=== PATIENT | female | born 1985 | race Caucasian/White ===

== ENCOUNTER 2017-03-04 11:20 | Emergency (ER) | payer OTHER ==
--- NOTE | 2017-03-04 12:13 | PD ---
HPI Chief Complaint Abdominal pain 2 days Date Seen: Mar 04, 2017 Time Seen: 12:05 Travel History International Travel<30 Days: No Contact w/Intl Traveler<30Days: No Known Affected Area: No History of Present Illness HPI This patient is 31-year-old white female A1 previous 1 at [address] Barker who presents complaining of lower abdominal pain for 2 days. She denies bleeding or rupture the membranes. Baby is active. Heart rate tracing is reactive and there are no contractions seen. Weeks Gestation: 30 Para: 1 : 3 Miscarriage: 1 History Obstetric History Obstetric History 1 at term 1 early loss Past Surgical History Narrative Surgical 1 Social History Alcohol Use: No Tobacco Use: No Substance Abuse: No Review of Systems General / Constitutional: No: Fever, Weight Gain, Chills, Other Eyes: No: Diploplia, Blurred Vision, Visual changes, Pain, Photophobia HENT: No: Headaches, Vertigo, Lightheadedness Cardiovascular: No: Irregular Rhythm, Chest Pain or Discomfort, Palpitations, Tachycardia, Syncope, Varicosities, Edema, Cyanosis Respiratory: No: Cough, Short of Breath, Other Gastrointestinal: Abdominal Pain, No: Nausea, Vomiting, Diarrhea Genitourinary: No: Decreased Urinary Output, Oliguria Musculoskeletal: No: Limited ROM, Weakness, Cramping, Edema, Pain Skin: No Rash, No Itching, No Dryness, No Lumps, No Change in Pigmentation, No Change in Nails, No Alopecia, No Lesions Neurologic: No: Weakness, Dizziness, Syncope, Focal Abnormalities, Coordination Problem, Headache, Slurred Speech, Seizures Psychiatric: No: Depression, Suicidal Ideations, Homicidal Ideation Endocrine: No: Heat Intolerance, Cold Intolerance, Polydipsia, Polyuria, Other Physical Exam Narrative GENERAL: Well-nourished, well-developed obese patient. SKIN: Warm and dry. HEAD: Normocephalic and atraumatic. EYES: No scleral icterus. No injection or drainage. ENT: No nasal drainage noted. Mucous membranes pink. Airway patent. NECK: Supple, trachea midline. No JVD. CARDIOVASCULAR: Regular rate and rhythm without murmurs, gallops, or rubs. RESPIRATORY: Breath sounds equal bilaterally. No accessory muscle use. BREASTS: Bilateral exam showed no masses , no retractions, no nipple discharge. ABDOMEN/GI: Abdomen soft, non-tender, bowel sounds present, no rebound, no guarding Gravid to [30-] weeks size Fundal Height: [-30] GENITOURINARY: External Genitalia: intact and normal in appearance BUS glands: [-] Cervix: [-post] Dilatation: [0-] Effacement: [0-] Station: [-3] Membranes: [intact ] Uterine Contractions: [-none] FHT's: Category: [-1] Baseline: [-133] Reactive: [-reactive] Variability: [-mod] Decels: [-0] EXTREMITIES: No cyanosis or edema. BACK: Nontender without obvious deformity. No CVA tenderness. NEUROLOGICAL: Awake and alert. Motor and sensory grossly within normal limits. Five out of 5 muscle strength in all muscle groups. Normal speech. Data Data Labs Urine dip is positive for small amount of ketones otherwise negative MDM Interpretation(s) This patient is a 31-year-old white female A1 at 30 weeks previous C- section now having some abdominal pain last [address] Barker for care. And she is planning to see Dr. Barker this afternoon for regular appointment. She denies bleeding or leakage of fluid. Baby is active. heart rate tracing is reactive. There are no contractions. Urine dipstick is essentially negative. And her cervix closed long and high. Pain likely soft tissue related possibly scar tissue from her previous or just over straining and dealing with at work and take care of 4-year-old toddler in the activities ago along with those things Plan Plan for the patient is to be discharged today to bedrest at home, increased oral fluids for hydration, Tylenol liberally, heating pad or hot bath for symptom relief. She is given a work note 48 hours. And is encouraged to see her doctor today Diagnosis Diagnosis: Primary Impression: Abdominal pain during in third trimester Additional Impression: Previous section Disposition: DISCHARGE HOME Condition: Stable Ronak Bella II, MD Mar 04, 2017 12:13
[2017-03-04] MEDS ORDERED: ZOLO50TA PO ×2 (12:14)
[2017-03-04] MEDS ORDERED: BUTA1CAP PO ×2 (12:16)
[2017-03-04 13:23] LABS: BACTERIA, URINE OCC /hpf; BILIRUBIN, URINE NEG (NEG); BLOOD, URINE NEG (NEG); GLUCOSE,URINE NEG (NEG); KETONE, URINE 10 mg/dL (NEG); MUCUS URINE FEW /lpf (OCC); NITRITE,URINE NEG (NEG); SQUAMOUS EPITHELIAL CELL URINE 1 /hpf (0-5); TRANSITIONAL EPI CELLS, URINE <1 /hpf; URINE COLOR YELLOW (YELLW/STRAW); URINE LEUKOCYTE ESTERASE NEG (NEG)
== END 2017-03-04 12:25 | disposition home or self-care (01) ==
LOC: HOBED 11:20
DX: O26.893 Other specified pregnancy related conditions, third trimester (principal); R10.30 Lower abdominal pain, unspecified
CPT/HCPCS: 81001; 99283